=== PATIENT | female | born 1985 ===

== ENCOUNTER 2025-01-08 12:42 | Outpatient (REF) | payer OTHER, SELFPAY | END 2025-01-08 12:43 | disposition home or self-care (01) | LOC: LBN 12:42 | PROVIDERS: Visit Provider Obstetrics & Gynecology | DX: Z12.4 Encounter for screening for malignant neoplasm of cervix (principal) | CPT/HCPCS: 88142; 87624 ==

== ENCOUNTER → 2025-01-16 11:54 | Outpatient (CLI) | payer OTHER, SELFPAY ==
--- NOTE | 2025-01-16 11:30 | DI.MAMMO_ITS ---
Exam(s) MAMMO SCREENING EXAM: MAMMO SCREENING CLINICAL HISTORY: Z12.39 screening. TECHNIQUE: Bilateral full field digital CC and MLO mammographic images were obtained with 3D tomosynthesis and utilizing computer aided detection (CAD). COMPARISON: None. Baseline examination. FINDINGS: Masses: None seen in the right breast. There is a partially obscured 10 millimeter nodule noted in the lower inner quadrant of the left breast. Spot compression views and ultrasound are requested further evaluation. Architectural Distortion: None seen. Microcalcifications: No suspicious pleomorphic-type are seen. Skin Thickening/Nipple Retraction: None. IMPRESSION: 1. 10mm area of nodularity in the medial left breast. Spot compression views and ultrasound requested for further evaluation.. No abnormality in the right breast. BI-RADS Category 0 - Incomplete: Need additional imaging evaluation Breast Density - Category D - The breast are extremely dense, which lowers the sensitivity of the mammography. Breast density Category C or D implies that the patient has dense breast tissue. Dense breast tissue can make it harder to find cancer on a mammogram. Dense breast tissue is also associated with an increased risk of breast cancer. This information about the result of the mammogram report was provided to the patient to raise their awareness. Use this report when you speak with the patient about their risks for breast cancer, which includes their family history. At that time, you may recommend additional screening tests (Ultrasound or MRI) as these tests may add significant information. A negative radiographic report should not delay biopsy if a dominant or clinically suspicious mass is present. Up to ten percent of cancers are not identified on mammography. A negative report may reinforce clinical impression. Adenosis and dense breasts may obscure an underlying neoplasm. False positive reports average 6 to 10%. Patient will receive a letter notifying them of these results.
== END ==
LOC: DI 11:55
PROVIDERS: Visit Provider Obstetrics & Gynecology
DX: Z12.31 Encounter for screening mammogram for malignant neoplasm of breast (principal)
CPT/HCPCS: 77063; 77067

== ENCOUNTER → 2025-01-22 01:35 | Outpatient (CLI) | payer OTHER, SELFPAY ==
--- NOTE | 2025-01-22 | DI.MAMMO_ITS ---
Exam(s) MG MAMMO SCREEN CALL BACK UNI US BREAST LT COMPLETE EXAM: MG MAMMO SCREEN CALL BACK UNI and U/S breast LT complete CLINICAL HISTORY: F/U MAMMO, R92.8,MEDIAL LT BREAST NODULARITY,. TECHNIQUE: Craniocaudal and mediolateral oblique spot digital Mammography views of the left breast with Computer Aided Diagnosis followed by Tomosynthesis and complete left breast ultrasound. All 4 quadrants were evaluated sonographically in addition to the axilla and retroareolar regions. COMPARISON: Comparison is made with the baseline examination dated 01/16/2025. FINDINGS: Mammography/Tomosynthesis: Masses/Architectural Distortion: The additional views again show a lobulated 1 cm nodule at the 9 o'clock position of the left breast. No associated calcifications are seen. There are no areas of architectural distortion. Microcalcifictions: No suspicious pleomorphic-type are seen. Skin Thickening/Nipple Retraction: None. Complete left breast US: Echotexture: Normal appearance of the glandular tissue. Shadowing: No suspicious foci. Cyst: None. Solid lesions: At the 9 o'clock position of the left breast, there is a hypoechoic mass measuring 8 mm. It has irregular borders including some angulated margins. At the 10 o'clock position of the left breast 1 cm from the nipple, there is an hypoechoic mass present. There is no internal blood flow. There is dense breast tissue seen at the 7 o'clock position. There is an ovoid well-circumscribed hypoechoic 4 mm nodule present. Ductal dilation: None. IMPRESSION: 1. At the 9 o'clock position of the left breast, there is suspicious hypoechoic mass present measuring 1 cm in size. There is an adjacent hypoechoic mass also seen at the 10 o'clock position 1 cm from the nipple. 2. These areas should be considered for biopsy. 3. The findings were discussed with the patient on the date of the examination. BI-RADS Category 4 - Suspicious Abnormality: Biopsy should be considered Breast Density - Category D - The breast are extremely dense, which lowers the sensitivity of the mammography. Breast density Category C or D implies that the patient has dense breast tissue. Dense breast tissue can make it harder to find cancer on a mammogram. Dense breast tissue is also associated with an increased risk of breast cancer. This information about the result of the mammogram report was provided to the patient to raise their awareness. Use this report when you speak with the patient about their risks for breast cancer, which includes their family history. At that time, you may recommend additional screening tests (Ultrasound or MRI) as these tests may add significant information. A negative radiographic report should not delay biopsy if a dominant or clinically suspicious mass is present. Up to ten percent of cancers are not identified on mammography. A negative report may reinforce clinical impression. Adenosis and dense breasts may obscure an underlying neoplasm. False positive reports average 6 to 10%. Patient will receive a letter notifying them of these results.
== END ==
LOC: DI 01:35
PROVIDERS: Visit Provider Obstetrics & Gynecology
DX: N63.25 Unspecified lump in the left breast, overlapping quadrants (principal); R92.312 Mammographic fatty tissue density, left breast
CPT/HCPCS: 76642; 77063; 77067

== ENCOUNTER → 2025-01-29 00:31 | Outpatient (CLI) | payer OTHER, SELFPAY ==
--- NOTE | 2025-01-29 07:15 | DI.MAMMO_ITS ---
Exam(s) MAMMO DIAGNOSTIC UNI EXAM: MAMMO DIAGNOSTIC UNI -LEFT CLINICAL HISTORY: post biopsy,LT BREAST MASS,N63.20. TECHNIQUE: Unilateral CC AND MLO mammographic images were obtained with 3D tomosynthesis technique and utilizing computer aided detection (CAD). COMPARISON: Prior recent mammogram and ultrasound were reviewed. This patient underwent ultrasound-guided core biopsy the previously described nodule at the 9 o'clock position today and a clip was placed during the procedure. This mammogram is for determining clip placement. FINDINGS: The posteriorly located clip is in the vicinity of the previously described nodule. However, please note that the nodule is significantly better visualized on ultrasound and on spot compression mammographic views (see images of 01/22/2025). 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 Appropriate follow-up will depend upon the pathology report. IMPRESSION: As above. Appropriate follow-up will depend upon pathology report. Given the density of this patient's fibroglandular tissue and the previously described left breast findings it might be prudent to also consider performing ultrasound of the opposite-right breast in the near future. The patient was informed of the findings and follow-up recommendations by myself prior to leaving the department today. Case reviewed with this patient at my office PACS BI-RADS Category 4 - Suspicious Abnormality: Biopsy performed and awaiting pathology report. Breast Density - Category C - The breast are heterogeneously dense, which may obscure small masses. Breast density Category C or D implies that the patient has dense breast tissue. Dense breast tissue can make it harder to find cancer on a mammogram. Dense breast tissue is also associated with an increased risk of breast cancer. This information about the result of the mammogram report was provided to the patient to raise their awareness. Use this report when you speak with the patient about their risks for breast cancer, which includes their family history. At that time, you may recommend additional screening tests (Ultrasound or MRI) as these tests may add significant information. A negative radiographic report should not delay biopsy if a dominant or clinically suspicious mass is present. Up to ten percent of cancers are not identified on mammography. A negative report may reinforce clinical impression. Adenosis and dense breasts may obscure an underlying neoplasm. False positive reports average 6 to 10%. Patient will receive a letter notifying them of these results.
== END ==
LOC: DI 00:31
PROVIDERS: Visit Provider Student in an Organized Health Care Education/Training Program
DX: N63.25 Unspecified lump in the left breast, overlapping quadrants (principal); R92.322 Mammographic fibroglandular density, left breast; D24.2 Benign neoplasm of left breast
CPT/HCPCS: 77061; 77065; G0279

== ENCOUNTER 2025-01-29 13:35 | Outpatient (REF) | payer OTHER, SELFPAY ==
--- NOTE | 2025-01-29 14:10 | BREAST_PTH ---
PATIENT: Melodie Torrez LOC: [facility] U#:[id number] AGE/SX: 39/F ROOM: RE01/29/[address]: Torie Kern : 1985 BED: DIS: 01/29/2025 SPEC #: [id number] RECD: 01/29/25 18:13 STATUS: DOREEN REQ #: [id number] NED: 01/29/25 14:[address]: Torie Kern DEPT: Surgical Specimen RECD BY: Kendy Alvarez ENTERED: 01/29/25 18:14 SP TYPE: Breast OTHR DR: No Local Tissues: 1 - BREAST BX NEEDLE Procedures: GROSS AND MICRO LEVEL 4 Comments: [id number]
== END 2025-01-29 13:36 | disposition home or self-care (01) ==
LOC: LBN 13:35
PROVIDERS: Visit Provider Student in an Organized Health Care Education/Training Program
DX: D24.2 Benign neoplasm of left breast (principal)
CPT/HCPCS: 88305